=== PATIENT | male | born 1935 | race Caucasian/White ===

== ENCOUNTER → 2017-08-30 | Outpatient (CLI) | payer OTHER | LOC: LABMALL 08:06 → MRI 14:00 | DX: R41.3 Other amnesia (principal) ==

== ENCOUNTER → 2020-01-12 | Outpatient (CLI) | payer OTHER | LOC: MRI 07:11 | DX: R90.82 White matter disease, unspecified (principal); G31.9 Degenerative disease of nervous system, unspecified ==

== ENCOUNTER 2021-07-27 19:36 | Emergency (ER) | payer OTHER ==
[~2021-07-27] VITALS: Ht 180.3 cm; Wt 72.6 kg
[2021-07-27 20:16] LABS: HEMATOCRIT 33.4 % (42.0-52.0); HEMOGLOBIN 11.6 gm/dL (14.0-18.0); MCH 31.5 pg (26.0-34.0); MCHC 34.7 g/dL (28.0-37.0); MCV 90.9 fL (80.0-100.0); RBC 3.67 mil/uL (4.50-6.00); RDW 14.2 % (10.5-14.5); WBC 6.7 thou/uL (4.0-11.0)
[2021-07-27 20:21] LABS: URINE BILIRUBIN NEGATIVE (Negative); URINE BLOOD TRACE (Negative); URINE CLARITY CLEAR; URINE COLOR YELLOW; URINE GLUCOSE-RANDOM* NEGATIVE (Negative); URINE KETONES NEGATIVE (Negative); URINE LEUKOCYTES-REFLEX NEGATIVE (Negative); URINE NITRITE-REFLEX NEGATIVE (Negative); URINE PROTEIN (DIPSTICK) NEGATIVE (Negative); URINE SPECIFIC GRAVITY 1.025 (1.005-1.035)
[2021-07-27 20:38] LABS: CALCIUM 8.1 mg/dL (8.5-10.1); CREATININE 1.3 mg/dL (0.7-1.3); POTASSIUM 4.7 mmol/L (3.5-5.1)
[2021-07-27 20:43] LABS: ALBUMIN 3.3 g/dL (3.4-5.0); TOTAL BILIRUBIN 0.5 mg/dL (0.2-1.0)
[2021-07-27 21:48] VITALS: BP 178/76
--- NOTE | 2021-07-28 10:22 | EKG ---
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 : 1935 Requested By: Arleth Murphy Order Number: [id number] MD: Renato Lal Measurements Intervals [place] Rate: 61 P: 35 MN: 181 QRS: 57 QRSD: 120 T: 55 QT: 424 QTc: 427 Interpretive Statements Sinus rhythm Nonspecific intraventricular conduction delay Minimal ST depression, lateral leads No previous ECG available for comparison Electronically Signed On 07-28-2021 10:22:12 CDT by Renato Lal [email or web address] <ELECTRONICALLY SIGNED> By: Renato Lal MD, [facility] 07/28/21 1022 194 45 Renato Lal MD, FACC /EPI
== END 2021-07-27 21:49 ==
LOC: ER 19:36
PROVIDERS: Physician Assistant
DX: R41.0 Disorientation, unspecified (principal); Z20.822 Contact with and (suspected) exposure to COVID-19; E87.1 Hypo-osmolality and hyponatremia

== ENCOUNTER 2021-07-27 22:48 | Inpatient (IN) | payer OTHER ==
--- NOTE | ~2021-07-27 | D ---
[facility] [place] [address] DISCHARGE SUMMARY Name: FRANCIA MUÑOZ Room #: [address] [place] [address] IN M.R.#: [id number] Admission: 07/27/21 Attend Phys: Ceferino Sanders DO Discharge: 08/02/21 Date of : 39 Report #: [id number] THIS REPORT FOR: cc: Edgar Rosario Steven F. DO Kerstein, Andrew H. DO ~ DATE OF SERVICE: 08/02/2021 SUMMARY DATE OF EXPIRATION/: 08/02/2021 ATTENDING PSYCHIATRIST: Ceferino Sanders DO INTERNAL AUDIT MANAGER: Benedicto Blanco M.D. DIAGNOSES AT TIME OF : Major neurocognitive disorder, Alzheimer's etiology with behavioral disturbance. Contributing cause was COVID-19 positive the day before. Of note, the patient was found unresponsive by nurse. A code blue was initiated. No pulse. CPR initiated several rounds of epinephrine and bicarbonate, intubated with oxygen saturation in the 60s. No return of spontaneous respirations or pulse. He was pronounced at 8:17, total time spent 17 minutes. LABORATORY DATA: The patient's laboratories of note, this admission 08/01/2021, Hematology: Hemoglobin and hematocrit 10.5 and 29.7, white count 4.8, platelet count 153. Chemistry: Sodium initially 129 on 07/29/2021, on 08/01/2021, it was 128, potassium stable at 4.5 on admission, chloride stable at 95, bicarbonate 28, anion gap 5, BUN 19, creatinine 1.1, estimated GFR 64, glucose 91, calcium 8.1, magnesium 1.6. Other laboratories of note, this admission, triglycerides 53, cholesterol 137, LDL 90, HDL 37. Urinalysis had trace blood, serology COVID-19 positive via test on 08/01/2021, it was negative on 07/27/2021. REASON FOR ADMISSION: On 07/27/2021, an 85-year-old male referred by Dr. Arsh Broderick, brought in by his grandson, Aki, his DPOA. The patient lives with his spouse, Alzheimer's dementia, formally diagnosed by neuropsychological testing about a year ago. He had a 5-year history of gradual decline. He was quite delusional. He was believing he was in the [place]. People were coming to his house to take things become more paranoid. This was the reason for psychiatric admission. HOSPITAL COURSE: The patient's initial days in the hospital were fairly uneventful. He was pleasantly confused, mildly guarded. I have started him on risperidone regimen of 0.5 mg twice a day. The patient was in the hospital over the holiday weekend. Unfortunately, he contracted COVID-19 during a outbreak on the unit. The patient was not requiring oxygen or in respiratory [address] [address] DISCHARGE SUMMARY Name: FRANCIA MUÑOZ Room #: 525A [facility] IN ..#: [id number] Admission: 07/27/21 Attend Phys: Ceferino Sanders, Discharge: 08/02/21 Date of : 37 Report #: [id number] distress as far as I can tell from notes on the and he was found unresponsive by his nurse just before 8:00 a.m. on 08/02/2021 with a code blue description given at the top. Last known vital signs before the code blue were around 08/01/2021 pulse 71, respirations 17, BP 154/67, O2 sat 99%. I made a telephone notification to his grandson and DPOA, Aki Cervantes. The grandson initially requested an autopsy, notification efforts were made at the [facility] payroll examiner's office. Also, the grandson was notified autopsy could be arranged at [facility], the remains were taken to the [facility]. By: 00 30 Ceferino Sanders, /nt
--- NOTE | 2021-07-28 02:50 | NUR ---
Arrived on the [facility] floor accompanied by x1 staff from the ED @ 21:45 on 07/27/21, and transferred to the bed in room 525A. VS 217/92 64 98 18 96.7F, height 5'11" weight 161.1 pounds. HRRR, Lungs CTA, ABD N x 4Q. Reports last ate at noon, reports last BM yesterday on Sat07/26/21. Denies Pain. Volunteers the information that "I'm in the [employer] nestor" has trouble with the timeline, reporting that he just got out of the [employer] a week ago. Wearing a watch on each wrist and a wedding band. Refused to give these up to be placed in with security. Likes to be called Clark and reports that he feels safe at home. Reports does not take medicine and walks without a device. Information from his SPOA and grandson is that his dementia got bad enough a year ago that he required LTC, however the grandson has tried to continue taking care of him at home. He currently leaves the stove on and does not lock his doors, endangering his and his 's safety. Jaya also reports increased hallucinations, PTSD, and sleep disorder. Reported to not take any meds at this time, and has not in the last 5 years, when he got mad at his doctor and discontinued taking any prescription medication. 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 After the , worked for [employer] and retired from that firm. Wears glasses. Is a stand by assist, with a Polo score of 45 and a fall risk based on his polo score and caution on admit. DPOA gave consent to treat on the telephone to 2 RNs. Patient expresses his understanding that he is in the hospital to give blood, and it is not convenient to stay as he has things to do. Will continue to monitor for safety and comfort as per unit protocol. Priscilla Lerner [phone] DPOA Grandpablo Wu [phone] PCP Edgar Rosario D.O [phone]
[2021-07-28 06:06] LABS: ANION GAP 8 mmol/L (7-16); BUN 15 mg/dL (7-18); CALCIUM 7.9 mg/dL (8.5-10.1); CHLORIDE 92 mmol/L (98-107); CHOLESTEROL 137 mg/dL (<200); CO2 25 mmol/L (21-32); CREATININE 1.2 mg/dL (0.7-1.3); GLUCOSE 101 mg/dL (74-106); HDL CHOLESTEROL 37 mg/dL (>40); LDL CHOLESTEROL 90 mg/dL (<100); POTASSIUM 4.3 mmol/L (3.5-5.1); SODIUM 125 mmol/L (136-145); TC:HDL 3.7 Ratio (Not establshd); TRIGLYCERIDE 53 mg/dL (<150); VLDL 11 mg/dL (<40)
[2021-07-28 06:16] LABS: SERUM ASSESSMENT Clear
[2021-07-28 10:30] VITALS: BP 158/74
--- NOTE | 2021-07-28 11:12 | NUR ---
Nutrition: New admit [facility] unit with increased hallucinations, confusion and dangerous behaviors at home. PMH: dementia, PTSD, HTN. Decreased appetite indicated on admission assessment, no weight loss. BMI WNL. Pt ate 100% of breakfast this am. Currently with hyponatremia. Na 125, Cl 92. Follow nutritional parameters but place as low nutrition risk for now.
[2021-07-28 11:33] VITALS: BP 182/79
[2021-07-28 16:25] VITALS: BP 166/81
--- NOTE | 2021-07-28 18:20 | NUR ---
Dr. Jane notified of Na++ of 125 and low Ca++ this AM. Alert and orientated to person only. States he [facility] to go [facility] to [facility]. Alot of confused speech. Denies SI/HI. Breath sounds clear. Reg HR auscultated, 50s. Clonidine given for HTN. BP repeated late afternoon. Color pink with brisk capillary refill and palpable peripheral pulses. Continent of yellow urine per toilet. Urine sent for osmolality. Active bowel sounds over soft, rounded abdomen. Ambulating with regular, steady gait wandering t/o unit late afternoon. Redirectable. Compliant with meds, took whole with H2O. Attempting to limit H2O d/t hyponatremia. No s/o distress.
[2021-07-28 20:35] VITALS: BP 147/65
--- NOTE | 2021-07-29 00:21 | NUR ---
07/28/21 - PT is pleasantly confused. He was wandering tonight and was exit seeking but he was redirectable. Discussed with pt the importance of taking his medication particularly the sodium tablet. He agreed and took his medications whole with water. Pt was assisted to be about 2200 and has been sleeping since. Denies SI/HI/AH/VH, just seems to not know where he is. Will continue to monitor throughout shift.
[2021-07-29 02:11] VITALS: BP 145/67
[2021-07-29 03:06] LABS: GLYCOHEMOGLOBIN (HGB A1C) 5.4 % (4.8-5.6)
[2021-07-29 06:27] LABS: CALCIUM 8.1 mg/dL (8.5-10.1); CREATININE 1.3 mg/dL (0.7-1.3); POTASSIUM 4.5 mmol/L (3.5-5.1)
[2021-07-29 10:09] VITALS: BP 127/45
--- NOTE | 2021-07-29 16:42 | NUR ---
Alert and orientated to name only. States he does not have any concerns or pain. Up ambulating t/o day with steady gait. Confused speech but at other times speaking with staff about career. Breath sounds clear. Reg HR auscultated. Color pink with brisk capillary refill and palpable peripheral pulses. No edema noted. Independent with voiding. Active bowel sounds over soft rounded abdomen. States he had BM yesterday. Currently watching TV with peers without s/o distress.
[2021-07-29 19:34] VITALS: BP 175/72
--- NOTE | 2021-07-30 03:30 | NUR ---
07/29/21- Pt is sitting out in the dayroom and occasional gets up and ambulates the hallway and then comes back in the day room and will watch TV. Pt is alert to self, pleasantly confused, takes his medication whole without difficulty, discussed that some of his medications will make him sleepy so I didn't want him up wandering. He tried to comply but forgets. Eventually one of the PCT assisted in getting him to lie in bed and he went to sleep. PCT informed the nurse that he had a medium BM about 0230am. Will continue to monitor throughout shift.
--- NOTE | 2021-07-30 06:37 | H ---
[facility] [place] [address] HISTORY AND PHYSICAL Name: FRANCIA MUÑOZ Room #: 525A-A ADM IN M.R.#: [id number] Admission: 07/27/21 Attend Phys: Ceferino Sanders DO Discharge: Date of : 37 Report #: [id number] THIS REPORT FOR: cc: Edgar Rosario Steven F. DO Kerstein, Andrew H. DO ~ DATE OF SERVICE: 07/28/2021 INPATIENT PSYCHIATRIC EVALUATION ATTENDING PSYCHIATRIST: Ceferino Sanders DO PET SITTING: Benedicto Blanco MD REASON FOR ADMISSION: Increasing delusions, inability to redirect, possible need for long-term care placement. SOURCES OF INFORMATION: Telephone conversation with SACHA and Aki matthew, review of Emergency Room and hospital records, interview with the patient. HISTORY OF PRESENT ILLNESS: This is an 85-year-old male brought in by his grandson who is his DPOA. Apparently, the patient lives with his spouse in a single family home. The has had increasing difficulty caring for the patient. In the background, is a 5-year history of gradual decline in cognition. Approximately one year ago, the patient had a neuropsychological battery outpatient with Dr. Moshe Broderick. 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 The decline became more rapid in 11/2019. The patient's grandson, whom I spoke with, provided several examples. Among them were the patient went with his to a doctor's appointment and then left her at the hospital and drove home around for several hours alone. The got a ride home and the patient returned a little afterwards and had no memory of the deserted . The patient has had periods where he thinks that members of the [place] are coming to his house to take things, so he will hide possessions in his car. The patient denied suicidal or homicidal ideation. He cannot state the month, day, date, year or his current location. The patient had a bilateral abnormally present palmomental reflex, which is indicative of central nervous system denervation. SOCIAL HISTORY: The patient was born and raised in [place], [place]. He is a high school graduate. He entered the [employer]. He did not see combat himself. Then, again working for [employer], retired as technology [employer]. He retired around 2004. Prior to admission, stayed or lived with his in his house. He had 2 children, a daughter and a son. The daughter most tragically approximately 20 years ago due to severe domestic [facility] [address] [place] [address] HISTORY AND PHYSICAL Name: FRANCIA MUÑOZ Room #: 525A-A ADM IN M.R.#: [id number] Admission: 07/27/21 Attend Phys: Ceferino Sanders DO Discharge: Date of : 37 Report #: [id number] violence. His son 6 years ago due to a heart attack. Interestingly, the grandson has an inn for placement of the patient at [facility] in [place], [place]. They do memory care there. We have not had a placement at that facility, but I have no reason to believe it would be a poor option for the patient and in conversation with the grandson today, we did ask him to come up with 2 more facilities in case the [facility] one does not materialize. SUBSTANCE ABUSE HISTORY: In terms of substance abuse history, the patient has a history of smoking, but quit 35 years ago, exact duration and quantity of tobacco use is not known. The patient himself does not have history of physical, sexual or emotional abuse. The patient was in the [facility], stated the evangelical is [employer]. No prior psychiatric history or hospitalizations. No outpatient psychiatric providers. His primary care physician is Dr. Rosario. FAMILY MEDICAL HISTORY: Mother, Alzheimer's disease. Sister, Alzheimer's disease. He has several siblings. Heart attack and diabetes in a son. 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 He has benign prostatic hypertrophy as well. He has hypothyroidism, hypertension, hyperlipidemia. Interestingly, the patient has not received his COVID-19 vaccination. The grandson reports the facility they are in does not require that. ALLERGIES: He has no known drug allergies. ADDITIONAL INFORMATION: VITAL SIGNS: Today, temperature 35.6, pulse 56, BP 166/81, respirations are not noted. LABORATORY DATA: From the Emergency Room here at [facility]: Slight anemia. H and H 11.6 and 33.4, white count 6.7, platelet count 221. Chemistries, we repeated a BMP today. Yesterday, his sodium was 124 and as fate would have it, his sodium today has improved to 125. Rest of electrolytes for 07/28/2021 were K 4.3, chloride 92, bicarbonate 25, anion gap of 8, BUN 15, creatinine 1.2, estimated GFR 58, glucose 101, calcium 7.9, total bilirubin 0.5, AST 34, ALT 42, alkaline phosphatase 84, total protein 7.0, albumin 3.3. The patient's triglycerides 53, cholesterol 137, LDL 90, HDL 37. Urinalysis interestingly showed trace blood, otherwise within normal limits. COVID-19 Villalba serology was negative. IMAGING DATA: In terms of imaging, the patient had a head MRI. This study is archived, and I am having some difficulty pulling up the report from the [facility] [address] [place] [address] HISTORY AND PHYSICAL Name: FRANCIA MUÑOZ Room #: 525A-A ADM IN [facility]#: [id number] Admission: 07/27/21 Attend Phys: Ceferino Sanders, Discharge: Date of : 37 Report #: [id number] [employer]. That said, the collateral I got from Dr. Broderick is that the patient had a pretty advanced dementia and I have no doubt that there was significant atrophy and features like that would support this diagnosis. This study was done on 01/12/2020 and indeed findings were moderate periventricular white matter disease, age appropriate cerebral atrophy, otherwise unremarkable. MRI of the brain. PHYSICAL EXAMINATION: GENERAL: He ambulates freely around the unit. He has a tattoo just distal to his right elbow. MENTAL STATUS EXAMINATION: This is a well-developed, age-appearing male. Attention limited. Concentration limited. Speech normal rate, volume, and tone. Thought process, linear and goal oriented. Thought content focused on no specific subject. Denied suicidal or homicidal ideation, auditory, visual, or tactile hallucinations. Mood and affect were congruent, constricted. Memory was not formally tested. Insight limited. Judgment limited. Fund of knowledge well below average. FORMULATION: An 85-year-old male with history of dementia and has been cared for by his at home, now exceeding caregiving capabilities, brought to [facility] for further functional evaluation and assistance with placement. DIAGNOSIS: At this time, major neurocognitive disorder, likely due to Alzheimer's disease with behavioral disturbance. Medical comorbidities include mild hyponatremia, hypertension, and insomnia. PLAN: The patient is admitted via DPOA as incapacitated to make healthcare or higher level decisions. Hospitalist is consulted. Regarding his medications, several things are in progress. He was given sodium chloride tablet 1 gram b.i.d., clonidine tablet 0.2 mg b.i.d., hydralazine 10 mg q. 6 hours p.r.n. for systolic blood pressure greater than 170. In addition, he gets trazodone 25 mg orally at bedtime for sleep. Otherwise, has PRNs. Plan will be to evaluate, stabilize, obtain collateral. At the moment, he is settling in. Today, the patient seems to be delusional about things. I discussed starting him on an antipsychotic. I think risperidone 0.5 mg b.i.d. will be in order, so we will get that started over the weekend. Time spent on this case was greater than 60 minutes, greater than 50% of the time was spent in review of records and coordination of care. The patient was seen in the ER initially. REVIEW OF SYSTEMS: [address] [address] HISTORY AND PHYSICAL Name: FRANCIA MUÑOZ Room #: 525A-A ADM IN M.R.#: [id number] Admission: 07/27/21 Attend Phys: Ceferino Sanders DO Discharge: Date of : 37 Report #: [id number] CONSTITUTIONAL: Negative. EYES: Negative. HENT: Negative. RESPIRATORY: Negative. CARDIOVASCULAR: Negative. GASTROINTESTINAL: Negative. GENITOURINARY: Negative. MUSCULOSKELETAL: Negative. SKIN: Negative. NEUROLOGIC: Negative. PSYCHIATRIC: Reported tactile hallucinations. ENDOCRINE: Negative. HEMATOLOGIC: Negative. Otherwise, 10-point review of systems was negative from [facility]. STRENGTHS: He is insured, supportive family, DPOA. WEAKNESSES: Needs long-term care placement, already has an advanced neurodegenerative disease at 85. <ELECTRONICALLY SIGNED> By: Ceferino Sanders DO 07/30/21 0637 1625 1705 Ceferino Sanders DO /nt
[2021-07-30 08:22] VITALS: BP 140/61
--- NOTE | 2021-07-30 12:40 | NUR ---
PATIENT CARE ASSUMED AT 0700, BELKYS SITTING IN DAY ROOM, ALERT TO SELF, CALM AND COOPERATIVE WITH ACRE, ATE BREAKAST, BOWEL SOUND ACTIVE OVER SOFT ROUNDED ABDOMEN, BREATH SOUND CLEAR, HR LOW OF 48, RE-CHEKED MANUALLY 56, RR EVEN NONLABOURED RA, NO EDEMA NOTED, COLOR BRISK WITH CAPILLARY REFILL, SKIN INTACT,PATIENT AMBULATE WITH STAEDY GAIT, INDEPENDENT WITH TOILETING, NO BEHAVIOR CHANGE, HE DENIES SI/HI. WILL CONTINUE TO MONITOR PATIENT FOR SAFETY
--- NOTE | 2021-07-30 14:02 | NUR ---
Patient is now on fluid restriction of 1200ML per day, i explained to patient and also told the MANAGER CODING
--- NOTE | 2021-07-30 15:34 | NUR ---
Check-in with pt. Pt. had been walking. SW was able to request the pt. have a seat and pt. willingly complied. Pt. didn't have any concerns.
[2021-07-30 19:28] VITALS: BP 176/71
[2021-07-30 20:00] VITALS: BP 176/71
--- NOTE | 2021-07-31 02:39 | NUR ---
PATIENT CARE WAS RESUMED AT 1900. HE IS ALERT AND ABLE TO VERBALISE CONCERNS. HE AMBULATES AND VERY CONFUSED. CONTINENT OF BOWEL AND BLADDER. HE DENIES PAINS. LUNGS ARE CLEAR. HE DENIES ANY PAINS /SI/AVH/HI. TOOK HIS MEDS AND YELLOW TOP AND SOCKS ON.BED IS LOW, LOCKED AND ALARMED.Q12 MINUTES CHECK ONGOING. CONTINUE CARE
[2021-07-31 09:39] VITALS: BP 176/69
--- NOTE | 2021-07-31 10:36 | NUR ---
PATIENT CARE RESUMED AT 0700, PATIENT IS ALERT TO SELF ONLY VERY CONFUSE, HE ATE BREAKFAST, COOPERATIVE WITH CARE, BREATH SOUND ARE CLEAR, ACTIVE BOWEL SOUND OVER SOFT ROUNDED ABDOMEN, COLOR PINK WITH BRISK CAPILLARY REFILL, REG HR, RR EVEN NOLABOURED RA, PATIENT AMBULATE WITH A STEADY GAIT, VOID INDEPENDENTLY, PATIENT DENIES SI/HI, NO PAIN REPORTED OR BEHAVIOR CHANGE, WILL CONTINUE TO MONITOR PATIENT FOR SAFETY
[2021-07-31 19:49] VITALS: BP 153/67
[2021-07-31 20:00] VITALS: BP 153/67
--- NOTE | 2021-08-01 02:26 | NUR ---
PATIENT CARE WAS RESUMED AT 1900. HE IS ALERT AND CONFUSSED. AMBULATES AND DENIES PAINS. SI/AVH/HI HE TOOK HIS MEDS. LUNGS ARE CLEAR ACTIVE X4 QUADS. NO BEHAVIOUR NOTED AT THIS TIME. BED IS LOW, LOCKED AND ALARMED. Q 12MIUNTES CHECK IS ONGOING.
[2021-08-01 05:47] LABS: ABSOLUTE NEUTROPHILS 3.4 thou/uL (1.4-8.2); BASOPHILS 0.5 % (0.0-2.0); EOSINOPHILS 2.6 % (0.0-3.0); HEMATOCRIT 29.7 % (42.0-52.0); HEMOGLOBIN 10.5 gm/dL (14.0-18.0); LYMPHOCYTES 12.2 % (24.0-44.0); MCH 31.9 pg (26.0-34.0); MCHC 35.2 g/dL (28.0-37.0); MCV 90.7 fL (80.0-100.0); MONOCYTES 14.7 % (1.0-8.0); PLATELET COUNT 153 thou/uL (150-400); RBC 3.27 mil/uL (4.50-6.00); RDW 13.7 % (10.5-14.5); WBC 4.8 thou/uL (4.0-11.0)
[2021-08-01 06:11] LABS: CALCIUM 8.1 mg/dL (8.5-10.1); CREATININE 1.1 mg/dL (0.7-1.3); MAGNESIUM 1.6 mg/dL (1.8-2.4); POTASSIUM 4.5 mmol/L (3.5-5.1)
[2021-08-01 09:18] VITALS: BP 122/49
--- NOTE | 2021-08-01 12:51 | NUR ---
PATIENT CARE RESUMED AT 0700, PATIENT WAS STANDING ON THE HALLWAY, ALERT AND ORIENTED X2, CALM AND COOPERATIVE WITH TREATMENT, HE ATE BREAKFAST, VSS, ACTIVE BOWEL SOUND OVER SOFT AND ROUNDED ABDOMEN, REGULAR HR, SKIN INTACT, BREATH SOUND CLEAR, HE TOOK HIS MEDICATION WHOLE, HE AMBULATE ON A STEADY GAIT, PATIENT DENIES SI/HI. WILL CONTINUE TO MONITOR FOR SAFETY AND BEHAVIOR.
[2021-08-01 17:21] VITALS: BP 100/72
[2021-08-01 20:12] VITALS: BP 154/67
[2021-08-01 21:16] VITALS: BP 157/67
--- NOTE | 2021-08-02 04:43 | NUR ---
08-01-21 CARE TRANSFERRED 1899. LATER PT AAOX1, VSS, RR EVEN AND NONLABORED ON RA. PT DENIES PAIN AND SI/HI. PT PRESENTS PLESANTLY CONFUSED AND EASILY REDIRECTED. PT HAS REMAINED CALM AND COOPERATIVE, BUT HAS HAD MOMENTS OF RESTLESSNESS. DURING MEDICATION ADMIN PT HAD NO DIFFICULTIES. PT BED WAS ADJUSTED FOR COMFORT, PT IWLL CONTINUE TO BE [id number] PER [facility] PROTOCOL.
--- NOTE | 2021-08-02 08:37 | NUR ---
Called Grandson with Dr. Sanders to inform him of patient's passing. Grandson feels concern because he was healthy coming in. At end of discussion, grandson states he wants an autopsy. Will explore this request with the MATHEMATICAL PHYSICIST.
--- NOTE | 2021-08-02 11:52 | NUR ---
RESUMMED CARE FROM OVERNIGHT SHIFT THIS AM, UPON ARRIVING TO PATIENTS ROOM TO DO MY ASSESSMENT AT 8:00 PATIENT NO PULSE AND NO RESPIRATIONS. WAS FOUND CALLED CODE BLUE TO PATIENTS ROOM. PRIOR TO THE TEAM ARRIVING CPR WAS STARTED ON PATIENT; CONTINUED CHEST COMPRESSIONS WHILE TEAM WAS GETTING MEDICATIONS PREPARED. WE WORKED ON HE PATIENT FOR 17 MINUTES NO PULSE WAS FOUND; PATIENT PRONOUNCED AT [address] FELTON. THE FAMILY WAS NOTIFIED PATIENT CLEANED AND PLACE IN BODY BAG WITH BELONGINGS.
== END 2021-08-02 11:07 | DRG 56 ==
LOC: SBH 22:48
PROVIDERS: Hospitalist; Nurse Practitioner; ADMIT Psychiatry & Neurology Psychiatry; ATTEND Psychiatry & Neurology Psychiatry
PROC: 0BH17EZ Insertion of Endotracheal Airway into Trachea, Via Natural or Artificial Opening (ICD-10-PCS; principal; 2021-08-02)
PROC: 5A1935Z Respiratory Ventilation, Less than 24 Consecutive Hours (ICD-10-PCS; principal; 2021-08-02)
PROC: 5A12012 Performance of Cardiac Output, Single, Manual (ICD-10-PCS; principal; 2021-08-02)
DX: G30.9 Alzheimer's disease, unspecified (principal); F02.81 Dementia in other diseases classified elsewhere, unspecified severity, with behavioral disturbance; U07.1 COVID-19; E87.1 Hypo-osmolality and hyponatremia; E44.1 Mild protein-calorie malnutrition; N40.0 Benign prostatic hyperplasia without lower urinary tract symptoms; E03.9 Hypothyroidism, unspecified; I10 Essential (primary) hypertension; E78.5 Hyperlipidemia, unspecified; G47.00 Insomnia, unspecified; I46.9 Cardiac arrest, cause unspecified; Z81.8 Family history of other mental and behavioral disorders; Z82.49 Family history of ischemic heart disease and other diseases of the circulatory system; Z83.3 Family history of diabetes mellitus
CPT/HCPCS: 10880